=== PATIENT | female | born 1965 | race Caucasian/White ===

== ENCOUNTER → 2022-08-18 | Outpatient (CLI) | payer BC ==
[~2022-08-18] MED LIST: AMLO5 PO; ATOR20 PO; DOCU100 PO; ESTR2 PO; HYDCHL25 PO; IBUP800 PO; METO50ER PO; Metoprolol Tar100 MG PO; PROM12.5S PO; SIME80CH PO
== END | disposition home or self-care (01) ==
LOC: LAB SHORT 08:50
DX: R35.0 Frequency of micturition (principal)
CPT/HCPCS: 87086